=== PATIENT | female | born 1960 | race African-American/Black ===

== ENCOUNTER 2017-07-20 11:56 | Emergency (ER) | payer OTHER ==
[~2017-07-20] VITALS: Ht 154.9 cm; Wt 97.1 kg
[~2017-07-20 11:56] MED LIST: ATOR20TA PO; TRAM50TA3 PO
[2017-07-20 12:02] VITALS: BP 162/98
--- NOTE | 2017-07-20 12:20 | NUR ---
PATIENT PRESENTS TO ED WITH COMPLAINTS OF DYSURIA. PATIENT STATES HER PCP ADVISED TO TO COME TO ED DUE TO A UTI THAT HAS BEEN GOING ON FOR 2 MONTHS ALONG WITH WORSENING FLANK PAIN, LOW ABDOMINAL PAIN, AND UPPER RESPIRATORY INFECTION. PATIENT UNABLE TO PROVIDE URINE SAMPLE AT THIS TIME. WILL TRY AGAIN IN A LITTLE BIT. DENIES N/V/D; SKIN IS PINK/WARM/DRY; AAOX4 WITH EVEN AND STEADY GAIT; LUNGS CLEAR BL; HR EVEN AND REGULAR; PT DENIES ANY FEVER AND CP.; PATIENT STATES PAIN OF 6/10 AT THIS TIME; VSS; PATIENT POSITIONED FOR COMFORT; HOB ELEVATED; BEDRAILS UP X1; BED DOWN. ER MD MADE AWARE OF PT STATUS.
--- NOTE | 2017-07-20 13:27 | NUR ---
PATIENT REPORTS BEING ALLERGIC TO IODINE AND IV CONTRAST. CT WITH CONTRAST CANCELLED.
--- NOTE | 2017-07-20 13:28 | NUR ---
PATIENT TAKEN TO CT
--- NOTE | 2017-07-20 13:39 | NUR ---
PATIENT BACK FROM CT
[2017-07-20 13:59] LABS: APPEARANCE,URINE CLEAR (CLEAR); BILIRUBIN,URINE NEGATIVE (NEGATIVE); BLOOD, URINE NEGATIVE (NEGATIVE); LEUKOCYTE ESTERASE ,URINE NEGATIVE (NEGATIVE); NITRITE, URINE NEGATIVE (NEGATIVE); UGLUCOSE NEGATIVE (NEGATIVE)
[2017-07-20 13:59] LABS: BASOPHILS # (AUTO) 0.1 K/uL (0.00-0.22); BASOPHILS % (AUTO) 0.5 % (0.0-2.0); EOSINOPHILS % (AUTO) 0.3 % (0.0-4.0); HEMATOCRIT 38.6 % (36-48); HEMOGLOBIN 12.7 g/dL (12.0-16.0); LYMPHOCYTES # (AUTO) 4.6 K/uL (2.5-16.5); LYMPHOCYTES % (AUTO) 37.9 % (20.5-51.1); MEAN CORPUSCULAR HEMOGLOBIN 30 pg (27-31); MEAN CORPUSCULAR HGB CONC 33 g/dL (33-37); MEAN CORPUSCULAR VOLUME 91.6 fL (80-94); MONOCYTES # (AUTO) 0.8 K/uL (0.8-1.0); MONOCYTES % (AUTO) 6.4 % (1.7-9.3); NEUTROPHILS # (AUTO) 6.6 K/uL (1.8-7.7); NEUTROPHILS % (AUTO) 54.9 % (42.2-75.2); PLATELET COUNT (AUTO) 287 K/uL (140-450); RED BLOOD CELL COUNT(AUTO) 4.22 MIL/uL (4.20-5.40)
[2017-07-20 14:08] LABS: ANION GAP 11.9 (8-16); CARBON DIOXIDE 29.4 mmol/L (21-32); CREATININE 1.1 mg/dL (0.6-1.3); POTASSIUM 3.3 mmol/L (3.5-5.1)
[2017-07-20 14:10] LABS: COLOR,URINE STRAW (YELLOW)
[2017-07-20 14:22] LABS: ALBUMIN 3.2 g/dL (3.4-5.0); MAGNESIUM 2.2 mg/dL (1.8-2.4); PHOSPHORUS 2.7 mg/dL (2.5-4.9); THYROID STIMULATING HORMONE 4.14 uIU/mL (0.34-3.74); TOTAL BILIRUBIN 0.2 mg/dL (0.0-1.0)
[2017-07-20 15:25] VITALS: BP 143/72
--- NOTE | 2017-07-20 15:26 | NUR ---
Patient discharged with v/s stable. Written and verbal after care instructions given and explained. Patient verbalized understanding. Ambulatory with steady gait. All questions addressed prior to discharge. Advised to follow up with PMD.
== END 2017-07-20 15:26 | disposition home or self-care (01) ==
LOC: MED 11:56
DX: R30.0 Dysuria (principal); J30.9 Allergic rhinitis, unspecified; E03.9 Hypothyroidism, unspecified; I10 Essential (primary) hypertension; Z85.3 Personal history of malignant neoplasm of breast; Z88.0 Allergy status to penicillin; Z88.8 Allergy status to other drugs, medicaments and biological substances; Z91.041 Radiographic dye allergy status
CPT/HCPCS: 36415; 70450; 80053; 81003; 83690; 83735; 84100; 84443; 85025; 87086; 93005; 99285

== ENCOUNTER 2021-10-15 06:40 | Day surgery (SDC) | payer OTHER ==
[~2021-10-15] VITALS: Ht 154.9 cm; Wt 93.4 kg
[2021-10-15] MEDS ORDERED: LIDOCAINE 2% 100 MG/5 ML UJET TP ONE (08:16)
[2021-10-15] MEDS ORDERED: fentaNYL citrate 0.05 MG/ML VIAL ONE (08:16)
[2021-10-15] MEDS ORDERED: MIDAZOLAM 2 MG/2 ML VIAL ONE (08:37)
[2021-10-15] MEDS ORDERED: MIDAZOLAM 2 MG/2 ML VIAL IVP ONE (09:30)
[2021-10-15] MEDS ORDERED: fentaNYL citrate 0.05 MG/ML VIAL IVP ONE (09:30)
== END 2021-10-15 10:00 | disposition home or self-care (01) ==
LOC: MDS 06:40 → MMU 06:40 → MDS 10:00
PROVIDERS: ATTEND Internal Medicine Gastroenterology
DX: Z12.11 Encounter for screening for malignant neoplasm of colon (principal); K63.5 Polyp of colon; K57.30 Diverticulosis of large intestine without perforation or abscess without bleeding; K64.9 Unspecified hemorrhoids; Z80.0 Family history of malignant neoplasm of digestive organs; Z20.822 Contact with and (suspected) exposure to COVID-19; Z88.0 Allergy status to penicillin; Z88.5 Allergy status to narcotic agent; Z88.6 Allergy status to analgesic agent; Z88.8 Allergy status to other drugs, medicaments and biological substances
CPT/HCPCS: 45385; 87426; J2250; J3010

== ENCOUNTER 2023-03-28 16:30 | Emergency (ER) | payer OTHER ==
[~2023-03-28] VITALS: Ht 149.9 cm; Wt 90.7 kg
[2023-03-28 16:41] VITALS: BP 165/123; PULSE 82; RESP 16; TEMP 97.5; O2SAT 96
[2023-03-28 17:32] LABS: BASOPHILS # (AUTO) 0.1 K/uL (0.00-0.22); EOSINOPHILS # (AUTO) 0.2 K/uL (0-0.4); EOSINOPHILS % (AUTO) 3.2 % (0.0-4.0); HEMATOCRIT 41.4 % (36-48); HEMOGLOBIN 14.1 g/dL (12.0-16.0); LYMPHOCYTES # (AUTO) 2.8 K/uL (2.5-16.5); LYMPHOCYTES % (AUTO) 39.6 % (20.5-51.1); MEAN CORPUSCULAR HEMOGLOBIN 31 pg (27-31); MEAN CORPUSCULAR HGB CONC 34 g/dL (33-37); MEAN CORPUSCULAR VOLUME 90.6 fL (80-94); MONOCYTES # (AUTO) 0.4 K/uL (0.8-1.0); MONOCYTES % (AUTO) 5.7 % (1.7-9.3); NEUTROPHILS # (AUTO) 3.6 K/uL (1.8-7.7); NEUTROPHILS % (AUTO) 50.5 % (42.2-75.2); PLATELET COUNT (AUTO) 318 K/uL (140-450); RED BLOOD CELL COUNT(AUTO) 4.57 MIL/uL (4.20-5.40); RED CELL DISTRIBUTION WIDTH 13.6 % (11.6-13.7); WHITE BLOOD COUNT (AUTO) 7.1 K/uL (4.8-10.8)
[2023-03-28 17:39] LABS: ANION GAP 11.6 (8-16); CALCIUM 9.2 mg/dL (8.5-10.1); CARBON DIOXIDE 29.5 mmol/L (21-32); CREATININE 1.1 mg/dL (0.6-1.3); POTASSIUM 4.1 mmol/L (3.5-5.1)
[2023-03-28] MEDS: HYDROcodone/APAP 5/325 MG 1 TAB TAB PO ONE (21:31)
[2023-03-28] MEDS ORDERED: ACET-8905 PO (22:16)
[2023-03-28] MEDS ORDERED: LID5T TP (22:16)
[2023-03-28] MEDS: LIDOCAINE 5% 1 EA PATCH TP ONE (22:35)
== END 2023-03-28 22:41 | disposition home or self-care (01) ==
LOC: MED 16:30
DX: M54.50 Low back pain, unspecified (principal); M25.512 Pain in left shoulder; J45.909 Unspecified asthma, uncomplicated; I10 Essential (primary) hypertension; Z88.0 Allergy status to penicillin; Z79.1 Long term (current) use of non-steroidal anti-inflammatories (NSAID); Z88.8 Allergy status to other drugs, medicaments and biological substances; Z79.899 Other long term (current) drug therapy
CPT/HCPCS: 36415; 71045; 71250; 73030; 80048; 84484; 85025; 93005; 99285

== ENCOUNTER 2023-04-12 08:09 | Emergency (ER) | payer OTHER ==
[~2023-04-12] VITALS: Ht 149.9 cm; Wt 90.7 kg
[~2023-04-12 08:09] MED LIST changes: +ACET-8905 PO; -ATOR20TA PO; +LID5T TP; -TRAM50TA3 PO
[2023-04-12 08:14] VITALS: BP 165/104; PULSE 94; RESP 18; TEMP 96.9; O2SAT 97
[2023-04-12] MEDS ORDERED: fentaNYL citrate 0.05 MG/ML VIAL ONE ×2 (09:59→12:35)
[2023-04-12] MEDS: fentaNYL citrate 0.05 MG/ML VIAL IVP ONE ×2 (10:13→12:48)
[2023-04-12 10:15] LABS: BASOPHILS # (AUTO) 0.1 K/uL (0.00-0.22); EOSINOPHILS # (AUTO) 0.1 K/uL (0-0.4); EOSINOPHILS % (AUTO) 1.6 % (0.0-4.0); HEMATOCRIT 38.7 % (36-48); HEMOGLOBIN 13.2 g/dL (12.0-16.0); LYMPHOCYTES # (AUTO) 2.9 K/uL (2.5-16.5); LYMPHOCYTES % (AUTO) 32.2 % (20.5-51.1); MEAN CORPUSCULAR HEMOGLOBIN 31 pg (27-31); MEAN CORPUSCULAR HGB CONC 34 g/dL (33-37); MEAN CORPUSCULAR VOLUME 91.3 fL (80-94); MONOCYTES # (AUTO) 0.5 K/uL (0.8-1.0); MONOCYTES % (AUTO) 5.5 % (1.7-9.3); NEUTROPHILS # (AUTO) 5.3 K/uL (1.8-7.7); NEUTROPHILS % (AUTO) 59.7 % (42.2-75.2); PLATELET COUNT (AUTO) 285 K/uL (140-450); RED BLOOD CELL COUNT(AUTO) 4.24 MIL/uL (4.20-5.40); RED CELL DISTRIBUTION WIDTH 13.5 % (11.6-13.7); WHITE BLOOD COUNT (AUTO) 8.9 K/uL (4.8-10.8)
[2023-04-12] MEDS: ONDANSETRON 4 MG/2 ML VIAL IVP ONE (10:18)
[2023-04-12 10:31] LABS: ANION GAP 7.8 (8-16); CALCIUM 9.2 mg/dL (8.5-10.1); CARBON DIOXIDE 29.7 mmol/L (21-32); CREATININE 1.1 mg/dL (0.6-1.3); POTASSIUM 3.5 mmol/L (3.5-5.1)
[2023-04-12 10:40] LABS: ALANINE AMINOTRANSFERASE 29 U/L (12-78); ALBUMIN 2.9 g/dL (3.4-5.0); ALKALINE PHOSPHATASE 82 U/L (50-136); ASPARTATE AMINOTRANSFERASE 51 U/L (15-37); LIPASE 30 U/L (16-77)
[2023-04-12 10:41] LABS: INR 1.01 (0.8-1.2); PARTIAL THROMBOPLASTIN TIME 25.4 secs (22-35.6); PROTHROMBIN TIME 10.6 secs (10.8-13.4)
[2023-04-12 10:55] LABS: BILIRUBIN,DIRECT 0.1 mg/dL (0.0-0.3); TOTAL BILIRUBIN 0.4 mg/dL (0.0-1.0); TOTAL PROTEIN, SERUM 8.6 g/dL (6.4-8.2)
[2023-04-12 11:55] LABS: APPEARANCE,URINE CLEAR (CLEAR); BILIRUBIN,URINE NEGATIVE (NEGATIVE); BLOOD, URINE NEGATIVE (NEGATIVE); COLOR,URINE YELLOW (YELLOW); LEUKOCYTE ESTERASE ,URINE 1+ (NEGATIVE); NITRITE, URINE NEGATIVE (NEGATIVE); PROTEIN,URINE NEGATIVE (NEGATIVE); UGLUCOSE NEGATIVE (NEGATIVE); UROBILINOGEN,URINE 0.2 EU/dL (0.2 - 1)
[2023-04-12] MEDS ORDERED: CYCL-711 PO (12:23)
[2023-04-12 12:30] LABS: BACTERIA,URINE 0-2 /HPF (None Seen); RBC,URINE 0-5 /HPF (0-5); SQUAMOUS EPITHELIAL CELL,UR 0-3 (FEW) /LPF (0-3 (FEW))
[2023-04-12] MEDS ORDERED: NITR100C7 PO (12:54)
[2023-04-12 13:18] VITALS: BP 152/77; PULSE 82; RESP 17; TEMP 96.9; O2SAT 100
== END 2023-04-12 13:18 | disposition home or self-care (01) ==
LOC: MED 08:09
DX: M32.9 Systemic lupus erythematosus, unspecified (principal); M79.18 Myalgia, other site; G62.9 Polyneuropathy, unspecified; I10 Essential (primary) hypertension; J45.909 Unspecified asthma, uncomplicated; Z85.3 Personal history of malignant neoplasm of breast; Z85.43 Personal history of malignant neoplasm of ovary; Z85.89 Personal history of malignant neoplasm of other organs and systems; Z88.8 Allergy status to other drugs, medicaments and biological substances; Z88.5 Allergy status to narcotic agent; Z88.0 Allergy status to penicillin; Z79.1 Long term (current) use of non-steroidal anti-inflammatories (NSAID); Z79.899 Other long term (current) drug therapy
CPT/HCPCS: 36415; 71250; 74176; 80048; 80076; 81001; 83690; 84484; 85025; 85610; 85730; 87086; 93005; 96374; 96375; 96376; 99285; J2405; J3010